=== PATIENT | male | born 1990 | race Two or more races ===

== ENCOUNTER 2019-06-12 02:02 | Emergency (ER) | payer OTHER ==
[~2019-06-12] VITALS: Ht 177.8 cm; Wt 72.6 kg
[2019-06-12 02:25] VITALS: BP 137/68
== END 2019-06-12 06:16 | disposition home or self-care (01) ==
LOC: ER 02:05
DX: S33.5XXA Sprain of ligaments of lumbar spine, initial encounter (principal); M54.16 Radiculopathy, lumbar region; X50.1XXA Overexertion from prolonged static or awkward postures, initial encounter; Y93.89 Activity, other specified; Y92.89 Other specified places as the place of occurrence of the external cause; Y99.8 Other external cause status
CPT/HCPCS: 72100